=== PATIENT | female | born 1995 | race Caucasian/White ===

== ENCOUNTER 2016-08-16 13:25 | Emergency (ER) | payer OTHER ==
[~2016-08-16] VITALS: Ht 160 cm; Wt 56.3 kg
[~2016-08-16 13:25] MED LIST: LORTAB 5-325 M1 EACH PO
[2016-08-16 14:09] LABS: HEMATOCRIT 40.5 % (36.0-46.0); MCH 30.4 PG (29.0-34.0); MCHC 35.1 G/DL (30.0-36.0); MCV 86.7 FL (83-99); MEAN PLAT.VOLUME 11.1 uM^3 (9.5-12.4); PLATELET COUNT 204 K/uL (156-360); RBC DIS.WIDTH-CV 12.1 % (11.8-14.6); RBC DIS.WIDTH-SD 38.5 % (39-53); RED BLOOD COUNT 4.67 M/uL (3.80-5.20); WHITE BLOOD COUNT 8.7 K/uL (4.1-10.2)
[2016-08-16 14:14] LABS: ADD MIUA? YES; BILIRUBIN NEGATIVE; BLOOD SMALL; COLOR YELLOW ((YELLOW)); GLUCOSE (STRIP) NEGATIVE; KETONES NEGATIVE; LEUKOCYTES MODERATE; NITRITE NEGATIVE; PROTEIN (STRIP) NEGATIVE; SPECIFIC GRAVITY 1.016 (1.000-1.030); UROBILINOGEN 0.2 MG/DL (0.2-1.0)
[2016-08-16 14:17] LABS: CHLORIDE 108 mEq/L (99-109); POTASSIUM 3.4 mEq/L (3.7-5.4); SODIUM 141 mEq/L (136-147)
[2016-08-16 14:20] LABS: GLUCOSE 64 mg/dL (70-99)
[2016-08-16 14:21] LABS: ANION GAP 8 MEQ/L (2-14)
[2016-08-16 14:22] LABS: TOTAL BILIRUBIN 0.6 mg/dL (0.0-1.0)
[2016-08-16 14:23] LABS: ALKALINE PHOSPHATASE 72 IU/L (3-129); GFR ESTIMATE (CALCULATED) > 59 mL/min/
[2016-08-16 14:24] LABS: BACTERIA NONE SEEN /HPF; EPITHELIAL CELLS 1+ /HPF; MUCUS TRACE /LPF; RED BLOOD CELLS 0-5 /HPF (0-5)
[2016-08-16 14:24] LABS: UREA NITROGEN (BUN) 9 mg/dL (9-23)
[2016-08-16 14:27] LABS: LIPASE 32 U/L (1.0-51.0)
[2016-08-16 14:32] LABS: QUANTITATIVE HCG < 4.0 MIU/ML
[2016-08-16] MEDS ORDERED: ZOFRAN ODT4 MG PO (14:44)
[2016-08-16] MEDS ORDERED: BENTYL10 MG PO (14:44)
[2016-08-16 14:56] VITALS: BP 110/71
== END 2016-08-16 15:03 | disposition home or self-care (01) ==
LOC: EME 13:25
PROVIDERS: Nurse Practitioner Family
DX: R10.84 Generalized abdominal pain (principal); R19.7 Diarrhea, unspecified; R42 Dizziness and giddiness
CPT/HCPCS: 80053; 81003; 83690; 84702; 85027; 99281; 99284; J2405; J7030